=== PATIENT | female | born 1960 | race Caucasian/White ===

== ENCOUNTER → 2019-10-24 | Outpatient (CLI) | payer BC ==
--- NOTE | 2019-10-24 12:56 | ECHOF ---
Referral Reason:R03.0 elevated BP MEASUREMENTS -------- HEIGHT: 172.7 cm WEIGHT: 87.1 kg BP: 170/116 RVIDd: 2.7 cm (< 3.3) IVSd: 0.9 cm (0.6 - 1.1) LVIDd: 4.4 cm (3.9 - 5.3) LVPWd: 1.8 cm (0.6 - 1.1) IVSs: 1.6 cm LVIDs: 2.9 cm LVPWs: 1.6 cm LAESV Index (A-L): 24.96 ml/m Ao Diam: 3.2 cm (2.0 - 3.7) AV Cusp: 1.9 cm (1.5 - 2.6) LA Diam: 3.2 cm (2.7 - 3.8) MV EXCURSION: 16.703 mm (> 18.000) MV EF SLOPE: 113 mm/s (70 - 150) EPSS: 0.5 cm MV E Mina: 0.57 m/s MV DecT: 186 ms MV A Mina: 0.80 m/s MV E/A Ratio: 0.72 RAP: 5.00 mmHg RVSP: 16.89 mmHg FINDINGS -------- Sinus rhythm. This was a technically adequate study. The left ventricular size is normal. There is borderline concentric left ventricular hypertrophy. Overall left ventricular systolic function is normal with, an EF between 55 - 60 %. The diastolic filling pattern is normal for the age of the patient 9.89. The right ventricle is normal in size. Normal LA size by volume 22+/-6 ml/m2. The right atrial size is normal. Interatrial and interventricular septum intact. The aortic valve is trileaflet and appears structurally normal. There is no evidence of aortic regu rgitation. There is no evidence of aortic stenosis. Mild mitral regurgitation is present. Mild tricuspid regurgitation present. There is no evidence of pulmonary hypertension. The right v entricular systolic pressure, as measured by Doppler, is 16.89mmHg. Trace/mild (physiologic) pulmonic regurgitation. The aortic root size is normal. IVC Not well visulized. There is no pericardial effusion. CONCLUSIONS -------- 1. Sinus rhythm. 2. This was a technically adequate study. 3. The left ventricular size is normal. 4. There is borderline concentric left ventricular hypertrophy. 5. Overall left ventricular systolic function is normal with, an EF between 55 - 60 %. 6. The diastolic filling pattern is normal for the age of the patient 9.89 7. The right ventricle is normal in size. 8. Normal LA size by volume 22+/-6 ml/m2. 9. The right atrial size is normal. 10. Interatrial and interventricular septum intact. 11. The aortic valve is trileaflet and appears structurally normal. 12. There is no evidence of aortic regurgitation. 13. There is no evidence of aortic stenosis. 14. Mild mitral regurgitation is present. 15. Mild tricuspid regurgitation present. 16. There is no evidence of pulmonary hypertension. 17. The right ventricular systolic pressure, as measured by Doppler, is 16.89mmHg. 18. Trace/mild (physiologic) pulmonic regurgitation. 19. The aortic root size is normal. 20. IVC Not well visulized. 21. There is no pericardial effusion. CANDLE MOLDER: Betty Nur RDCS
--- NOTE | 2019-10-24 13:40 | EST ---
EXERCISE STRESS DATE OF SERVICE: 10/24/2019 AGE: 59 SEX: Female HT: 5'8" WT: 192 pounds PROTOCOL: Alphonso STAGE: I DURATION OF EXERCISE: 3 minutes HEART RATE REST: 90 BLOOD PRESSURE REST: 156/101 MAXIMUM HEART RATE ACHIEVED: 123 MAXIMUM BLOOD PRESSURE: 206/135 85% MPHR: 138 100% MPHR: 162 METS: 4.4 INDICATIONS: Elevated blood pressure. CLINICAL INFORMATION: The patient was exercised for a total period of 3 minutes. The peak heart rate of 123 was achieved. Maximum blood pressure of 206/135 mmHg was noted. Resting EKG shows normal sinus rhythm with normal MS interval and QRS duration and normal ST-T waves. No ST-segment depression suggestive of ischemia was noted. Occasional PVCs are noted. FINAL IMPRESSION: 1. This exercise test is not suggestive of ischemia. 2. Patient's exercise tolerance is below average. 3. Patient developed hypertension during exercise. MMODL / IJN: [id number] /
== END | disposition home or self-care (01) ==
LOC: RADNMMAIN 08:16
PROVIDERS: ATTEND Family Medicine
DX: I08.1 Rheumatic disorders of both mitral and tricuspid valves (principal)
CPT/HCPCS: 93017; 93306